=== PATIENT | male | born 1965 | race Caucasian/White ===

== ENCOUNTER 2021-09-14 10:12 | Observation (INO) | payer BC ==
[~2021-09-14] VITALS: Ht 175.3 cm; Wt 94.8 kg
--- NOTE | 2021-09-15 06:34 | EKG ---
[facility] [address] [facility] [place] [address] Signed Normal sinus rhythm Normal ECG No previous ECGs available Confirmed by RICARDO MONGE MD ([id number]) on 09/15/2021 6:34:03 AM Electronically Signed By: RICARDO MONGE MD 09/15/21 0634 PATIENT NAME: AYAKA PALOMINO Electrocardiogram DATE OF : 65 PHYSICIAN: RICARDO MONGE MD REPORT #: [id number] REPORT IS CONFIDENTIAL AND NOT TO BE RELEASED WITHOUT AUTHORIZATION
--- NOTE | 2021-09-15 06:57 | CONS ---
[facility] [address] [place], [place] [address] Signed DATE OF CONSULTATION: 09/14/2021 CHIEF COMPLAINT: Epigastric abdominal pain. 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 He single and he lives near [place]. He said the last week, he has been having trouble with epigastric abdominal pain radiating through to his back. He also noticed that his right testicle had doubled in size. He finally decided to come the emergency room due to the epigastric pain. His white count was normal. His liver function tests were normal. Ultrasound of his gallbladder shows a fatty liver with stones and sludge in the gallbladder. The gallbladder wall is a little thickened at 7 mm. There is some mild pericholecystic fluid. The common bile duct is good at 4.9 mm. He also had an ultrasound of the both sides of the scrotum and he does have a right hydrocele versus spermatocele about 7.7 cm in size and on the left, it is about 3 cm. We did review that. He can certainly follow that up with a urologist. In the meantime, his pain is improved and he has been given antibiotics and IV fluids. I have been asked to admit him as a general surgeon on-call. He told me currently he is hungry and was hoping he could eat. PAST MEDICAL HISTORY: An umbilical hernia for about the last year, asthma as a child. PAST SURGICAL HISTORY: He had a lipoma removed from the base of his neck and upper back. SOCIAL HISTORY: He does not smoke. He likes to have 2-4 shots of [place] whiskey each day. He just established with Ciara Mcdonnell, a nurse practitioner in [place], [place]. His mom is Elayne at [phone], who lives in the [facility] about 1 hour away. He has three children, although currently is single. He does drive. FAMILY HISTORY: Dad has diabetes and coronary artery disease. REVIEW OF SYSTEMS: He had 10-systems reviewed and there were no new findings. ALLERGIES: None. Electronically Signed By: ROYCE CASTILLO MD 09/15/21 0657 PATIENT NAME: AYAKA PALOMINO CONSULTATION DATE OF : 65 REPORT #: [id number] PHYSICIAN: ROYCE CASTILLO MD PCP: NO PRIMARY CARE PHYSICIAN REPORT IS CONFIDENTIAL AND NOT TO BE RELEASED WITHOUT AUTHORIZATION [facility] [address] [place], [place] [address] Signed MEDICATIONS: None. PHYSICAL EXAMINATION: VITAL SIGNS: Blood pressure 155/93, his heart rate is 76, respiratory rate 16, temperature is 97.9, and he is 100% on room air, and he is 5 feet 9 inches at 94 kg. GENERAL: Ayaka is a 56-year-old gentleman, who does not appear systemically ill or toxic. He is not jaundiced. He is an excellent historian. LUNGS: Clear to auscultation bilaterally. HEART: Regular rate and rhythm without murmurs. ABDOMEN: Moderately to protuberant and firm at his baseline. He does not seem to have any right upper quadrant or epigastric tenderness now. He has a 1 cm reducible umbilical hernia. LABORATORY DATA: White blood cell count 8.7, hemoglobin 15, neutrophils 72. His BUN is 15 and creatinine 1.05, glucose 106. COVID is negative. Total bilirubin 0.5, AST 15, ALT 53, alkaline phosphatase 79, albumin 3.9, lipase 72. RADIOGRAPHIC STUDIES: The ultrasound of his gallbladder shows a somewhat nodular fatty liver along with the stones and sludge in the gallbladder wall, little thick at 7 mm with some mild pericholecystic fluid in the common bile duct, unremarkable 4.9 mm. The ultrasound of the scrotum showed the right hydrocele versus spermatocele about 7.7 cm and on the left, it is about 3 cm. ASSESSMENT/PLAN: Ayaka is a 56-year-old gentleman, who presents with acute cholecystitis, cholelithiasis, and his umbilical hernia. Currently, our crew was tied up delivering a baby. At this point, he is feeling much better. I think we are going for the night and we will get him done mid morning tomorrow. I have reviewed with him the above findings. We have reviewed the location and function of the gallbladder. We have reviewed laparoscopic versus open cholecystectomy. He understands expected intraop and postop course. He hopes to be on a plane next week for [place] and he should be fine to do that. He understands there is risk including, but not limited to bleeding, infection, scarring, change in contour the skin, damage to bowel, damage to main bile duct, incisional hernias and other unforeseen comorbidities. He has expressed understanding and would like to proceed. Royce Castillo MD Electronically Signed By: ROYCE CASTILLO MD 09/15/21 0657 PATIENT NAME: AYAKA PALOMINO CONSULTATION DATE OF : 65 REPORT #: [id number] PHYSICIAN: ROYCE CASTILLO MD PCP: NO PRIMARY CARE PHYSICIAN REPORT IS CONFIDENTIAL AND NOT TO BE RELEASED WITHOUT AUTHORIZATION [address] [place], [place] [address] Signed [facility]/MODL /[id number] cc: LIZZIE Andrade MD Copies: ROYCE CASTILLO MD ~ Electronically Signed By: ROYCE CASTILLO MD 09/15/21 0657 PATIENT NAME: AYAKA PALOMINO CONSULTATION DATE OF : 65 REPORT #: [id number] PHYSICIAN: ROYCE CASTILLO MD PCP: NO PRIMARY CARE PHYSICIAN REPORT IS CONFIDENTIAL AND NOT TO BE RELEASED WITHOUT AUTHORIZATION
[2021-09-15] MEDS ORDERED: HYDROCODON-ACE1 EAC8 PO (14:04)
[2021-09-15] MEDS ORDERED: MAPAP500 MG PO (14:07)
[2021-09-15] MEDS ORDERED: ADVIL200 MG PO (14:08)
[2021-09-15] MEDS ORDERED: ALEVE220 MG PO (14:09)
--- NOTE | 2021-09-16 07:56 | OR ---
[facility] [address] [place], [place] [address] Signed DATE OF OPERATION: 09/15/2021 SURGEON: Royce Menjivar MD PREOPERATIVE DIAGNOSES: 1. Acute cholecystitis and cholelithiasis. 2. Reducible umbilical hernia (10 mm). POSTOPERATIVE DIAGNOSES: 1. Acute cholecystitis and cholelithiasis. 2. Reducible umbilical hernia (10 mm). 3. Fatty liver. PROCEDURES: 1. Laparoscopic cholecystectomy with intraoperative cholangiogram. 2. Primary umbilical herniorrhaphy. ESTIMATED BLOOD LOSS: Minimal. FINDINGS: Ayaka indeed has moderate fatty liver, although the surface of his liver is not particularly nodular. We decided to forego the needle biopsy at this time. He also has a 10 mm umbilical hernia, which we closed primarily at the end of our case. The intraoperative cholangiogram showed what may have been a tiny filling defect in the cystic duct probably not. He clearly had stones in his gallbladder and he had edema of the gallbladder wall. He had rather significant inflammatory changes around the triangle of Calot, and so we could only dissect so far, and we stopped just as the gallbladder was coming to the cystic duct. INDICATIONS: Ayaka is a 56-year-old gentleman, who generally is healthy, although he is just now establishing with the primary care provider. He said he has had a week or maybe even longer of epigastric abdominal pain radiating through to his back. He also noticed an umbilical hernia about the last one year. He said it is reducible. He noticed that the right testicle area seemed to be doubled the size of the left. He was having significant epigastric abdominal pain, so he came to emergency room for evaluation. His laboratory work really was not very concerning. Ultrasound of the liver was concerning for fatty liver, but he also had a thickened gallbladder wall 7 mm with stones and sludge inside the gallbladder. The common bile duct was unremarkable at 4.9 mm. There Electronically Signed By: ROYCE MENJIVAR MD 09/16/21 0756 PATIENT NAME: AYAKA PALOMINO OPERATIVE REPORT DATE OF : 65 REPORT #: [id number] PHYSICIAN: ROYCE MENJIVAR MD PCP: NO PRIMARY CARE PHYSICIAN REPORT IS CONFIDENTIAL AND NOT TO BE RELEASED WITHOUT AUTHORIZATION [facility] [address] [place], [place] [address] Signed appeared to be some mild pericholecystic fluid. He also underwent ultrasound of scrotum and there appears to be a septated right hydrocele and/or spermatocele around 7.7 cm in size, on the left it is much smaller around 3 cm. In due time he will need to see his urologist as an outpatient. I have been asked to admit him as a general surgeon on-call. He was hydrated given antibiotics and pain medication and subcutaneous Lovenox. He is feeling much better when I saw him last evening. Our on-call crew was busy throughout the night with delivery of the baby and so we decided to wait and perform Ayaka surgery this morning once we had a crew available. I brought him a brochure on the gallbladder. We reviewed the location and function of the gallbladder. We discussed laparoscopic versus open cholecystectomy. We reviewed the concept of ERCP for common bile duct stones. He understands expected intraop and postop course. He is hoping to fly down to [facility] next week. More than likely he will be able to do that. He understands there is risk to the surgery including, but not limited to bleeding, infection, scarring, change in contour the skin, damage to bowel, damage to main bile duct, incisional hernias and other unforeseen comorbidities. He had expressed understanding and wished to proceed. PROCEDURE: Ayaka was taken into the operating room and placed in the supine position under general endotracheal tube anesthesia. He was already on preoperative antibiotics along with subcutaneous Lovenox. His SCDs were in place. He was prepped and draped in the usual sterile fashion. A standard supraumbilical transverse incision was made and carried down and around the umbilicus bluntly and with the cautery. The omentum had been reduced. The hernia sac had been excised and passed off the field. We placed our Mis trocar through this, insufflated the abdomen. The two right subcostal and subxiphoid trocar sites were placed, placed under direct visualization camera without difficulty. He does have a fatty liver and it is very mild nodularity to the surface of his liver. In that regard, we decided to forego a needle biopsy at this time. We rather focused our attention on his gallbladder. The gallbladder was grasped and elevated in the right upper quadrant. It was edematous and thickened. We started our dissection up on the neck of the gallbladder work down towards the triangle of Calot. As we got down into the triangle of NEIL, the inflammatory changes in the induration became progressively worse. It took a few minutes and an extra nurse had to scrub in until we finally got down to where the gallbladder meets the cystic duct. The intraoperative cholangiocatheter was inserted. The intraoperative cholangiogram was then performed. The contrast flowed nicely out into the duodenum and up into the liver. We thought there may have been a filling defect in the mid cystic duct. We looked at a couple of times the cystic duct with a [place] dissectors. We felt that area was clear of any filling defect. We then secured the cystic duct stump with a PDS Endoloop and two clips were placed across the cystic duct stump to yuriy its location. We had placed a couple of clips on the cystic artery early and it had been divided. The gallbladder was then slowly and carefully removed from the gallbladder fossa with the Electronically Signed By: ROYCE MENJIVAR MD 09/16/21 0756 PATIENT NAME: AYAKA PALOMINO OPERATIVE REPORT DATE OF : 65 REPORT #: [id number] PHYSICIAN: ROYCE MENJIVAR MD PCP: NO PRIMARY CARE PHYSICIAN REPORT IS CONFIDENTIAL AND NOT TO BE RELEASED WITHOUT AUTHORIZATION [facility] [address] [place], [place] [address] Signed help of the cautery and placed into an EndoCatch bag. The right upper quadrant gallbladder fossa was irrigated and suctioned out until clear. We used our laparoscopic suturing device to pass 0-Vicryl suture on either side of the fascia of the subxiphoid trocar site. This was tied down to close this fascia primarily. After this, all the gas was allowed to escape and all the trocars were removed along with the gallbladder. The gallbladder was passed to the circulating nurse for photodocumentation. We closed the umbilical fascial defect transversely with a running #1 Prolene suture. Local anesthetic was copiously injected into all trocar sites. Each trocar site was irrigated and suctioned out until clear. The umbilical skin was brought down to the midline fascia with two interrupted 2-0 PDS sutures. The dermis was reapproximated with interrupted 3-0 subcuticular Monocryl sutures. We used our 5-0 fast absorbing plain gut suture to close the skin of the supraumbilical trocar site. Dry gauze and tape were then applied at all incisions. Ayaka was awakened from his anesthesia, extubated in the OR, and taken to the recovery room in stable condition. Royce Menjivar MD [facility]/MODL /[id number] cc: Royce Menjivar MD Patient Chart GILBERTO Sarmiento Copies: ROYCE MENJIVAR MD, SARAH E ARNP ~ Electronically Signed By: ROYCE MENJIVAR MD 09/16/21 0756 PATIENT NAME: AYAKA PALOMINO OPERATIVE REPORT DATE OF : 65 REPORT #: [id number] PHYSICIAN: ROYCE MENJIVAR MD PCP: NO PRIMARY CARE PHYSICIAN REPORT IS CONFIDENTIAL AND NOT TO BE RELEASED WITHOUT AUTHORIZATION
--- NOTE | 2021-09-18 11:07 | PATH ---
[facility] [address] [place], [place] [address] Signed SPECIMEN(S): A GALLBLADDER WITH STONES SPECIMEN SOURCE: A. GALLBLADDER WITH STONES CLINICAL HISTORY: Cholecystitis FINAL PATHOLOGIC DIAGNOSIS: Gallbladder, cholecystectomy: - Chronic cholecystitis. - Cholelithiasis. NAL:cml:C2NR MICROSCOPIC EXAMINATION: Histologic sections of all submitted blocks are examined by light microscopy. These findings, together with the gross examination, support the pathologic diagnosis. GROSS DESCRIPTION: The specimen, labeled "YO," and designated on the requisition "gallbladder with stones," is received in formalin and consists of: Specimen: Previously incised gallbladder. Dimensions: Upon reconstruction, 10.2 x 4.1 x 2.9 cm. Serosa: Fernández to brown, somewhat marbled, smooth, glistening, and mostly fat covered. Cystic Duct: The proximal gallbladder has been previously incised and a grossly definitive cystic duct margin cannot be determined. The most proximal portion of the gallbladder is inked blue. Calculi: The gallbladder and specimen container contain multiple, yellow to black, hard, friable, granular calculi from less than 0.1 up to 2.7 cm in greatest dimension. Mucosa: Fernández to dark brown, velvety to trabecular, and glistening. Wall thickness: 0.2 to 0.3 cm. Lymph node: No pericystic lymph nodes are grossly identified. Additional: None. Brine Maker sections are submitted in cassette (A1). AI (under the direct supervision of a pathologist) Additional sections of possible cystic duct are submitted in cassette A1-A2 at the request of Dr. Doherty. PATIENT NAME: AYAKA PALOMINO PATHOLOGY DATE OF : 65 REPORT #: [id number] PHYSICIAN: GRISELDA POPE PCP: NO PRIMARY CARE PHYSICIAN REPORT IS CONFIDENTIAL AND NOT TO BE RELEASED WITHOUT AUTHORIZATION [facility] [address] [place] [address] Signed AC (under the direct supervision of a pathologist) The Gross Description was prepared using a voice recognition system. The report was reviewed for accuracy; however, sound-alike word errors, addition and/or deletions may occur. If there is any question about this report, please contact Client Services. PERFORMING LABORATORY: The technical component was performed by [facility], [address] [place] [id number] (CLIA# [id number]). Professional interpretation was performed by [facility], Formerly [facility], [address] [place] [id number] (CLIA# [id number]). Diagnostician: Lizz Doherty MD Pathologist Electronically Signed 09/18/2021 Copies: ~ PATIENT NAME: AYAKA PALOMINO PATHOLOGY DATE OF : 65 REPORT #: [id number] PHYSICIAN: [facility] PCP: NO PRIMARY CARE PHYSICIAN REPORT IS CONFIDENTIAL AND NOT TO BE RELEASED WITHOUT AUTHORIZATION
== END 2021-09-15 15:47 | disposition home or self-care (01) ==
LOC: ED 10:12 → MS 10:15
PROVIDERS: ADMIT Colon & Rectal Surgery; ATTEND Colon & Rectal Surgery
PROC: BF00YZZ Plain Radiography of Bile Ducts using Other Contrast (ICD-10-PCS; 2021-09-15)
PROC: 0FT44ZZ Resection of Gallbladder, Percutaneous Endoscopic Approach (ICD-10-PCS; principal; 2021-09-15 10:00)
DX: K80.12 Calculus of gallbladder with acute and chronic cholecystitis without obstruction (principal); K42.9 Umbilical hernia without obstruction or gangrene; K76.0 Fatty (change of) liver, not elsewhere classified; J45.909 Unspecified asthma, uncomplicated; Z20.822 Contact with and (suspected) exposure to COVID-19
CPT/HCPCS: 36415; 74300; 76705; 76870; 80053; 81001; 83690; 83735; 84100; 85025; 85610; 93005; 93010; 96372; 96374; 96375; 96376; 99285-25; C9803; G0378; J0330; J0696; J1100; J1170; J1650; J1885; J2250; J2405; J2704; J2765; J3010; J7030; J7121; Q9967; U0003